=== PATIENT | male | born 1950 | race Caucasian/White ===

== ENCOUNTER 2025-04-20 12:24 | Emergency (ER) | payer OTHER ==
[~2025-04-20] VITALS: Ht 170.2 cm; Wt 81.8 kg
[2025-04-20 12:41] VITALS: TEMP 97.5
[2025-04-20 13:27] LABS: PLATELET COUNT (AUTO) 239 K/uL (150-450); RED BLOOD CELL COUNT(AUTO) 5.86 MIL/uL (4.50-5.90); RED CELL DISTRIBUTION WIDTH 13.9 % (11.5-14.5); WHITE BLOOD COUNT (AUTO) 5.9 K/uL (4.5-11.0)
[2025-04-20 13:37] LABS: CALCIUM, TOTAL 8.5 mg/dL (8.8-10.5); CREATININE 0.84 mg/dL (0.60-1.30); GLOMERULAR FILTR. RATE CALC > 60 mL/min (>60); GLUCOSE,RANDOM 150 mg/dL (70-110); SODIUM SERUM 140 mmol/L (136-145); UREA NITROGEN, BLOOD 10 mg/dL (7-18)
[2025-04-20] MEDS: TERBINAFINE HCL 1% 30 GM CREAM TP ONE (13:37)
[2025-04-20 14:00] VITALS: BP 140/68; PULSE 71; RESP 18; O2SAT 97
[2025-04-20 14:04] LABS: ASPARTATE AMINOTRANSFERASE 27.0 U/L (15-37); TOTAL PROTEIN, SERUM 7.5 g/dL (6.4-8.2)
[2025-04-20 14:32] LABS: APPEARANCE,URINE CLEAR (CLEAR); GLUCOSE, URINE (UA) >=1000 mg/dL (NEGATIVE); LEUKOCYTE ESTERASE ,URINE NEGATIVE (NEGATIVE); NITRATE,URINE NEGATIVE (NEGATIVE); OCCULT BLOOD,URINE NEGATIVE (NEGATIVE); SPECIFIC GRAVITIY, URINE 1.027 (1.003-1.030)
== END 2025-04-20 15:26 | disposition home or self-care (01) ==
LOC: EMS 12:24
DX: B35.1 Tinea unguium (principal); M65.342 Trigger finger, left ring finger; E11.9 Type 2 diabetes mellitus without complications; I10 Essential (primary) hypertension; Z85.038 Personal history of other malignant neoplasm of large intestine; Z98.890 Other specified postprocedural states
CPT/HCPCS: 80048; 80076; 81001; 82962; 83690; 85025; 99283

== ENCOUNTER 2025-06-10 10:00 | Emergency (ER) | payer OTHER, MEDICARE, MEDICAID ==
[~2025-06-10] VITALS: Ht 165.1 cm; Wt 77.0 kg
[2025-06-10 10:10] VITALS: TEMP 97.9
[2025-06-10] MEDS: IOHEXOL 9 MG/ML 500 ML BOTTLE PO ONE (10:50)
[2025-06-10] MEDS ORDERED: IOHEXOL 350 MG/ML 100 ML VIAL ONE (10:53)
[2025-06-10] MEDS ORDERED: SODIUM CHLORIDE 0.9% 100 ML ONE (10:53)
[2025-06-10 10:58] LABS: CALCIUM, TOTAL 9.0 mg/dL (8.8-10.5); CREATININE 0.92 mg/dL (0.60-1.30); GLOMERULAR FILTR. RATE CALC > 60 mL/min (>60); GLUCOSE,RANDOM 134 mg/dL (70-110); SODIUM SERUM 142 mmol/L (136-145); UREA NITROGEN, BLOOD 10 mg/dL (7-18)
[2025-06-10 11:03] LABS: PLATELET COUNT (AUTO) 245 K/uL (150-450); RED BLOOD CELL COUNT(AUTO) 5.66 MIL/uL (4.50-5.90); RED CELL DISTRIBUTION WIDTH 14.4 % (11.5-14.5); WHITE BLOOD COUNT (AUTO) 5.1 K/uL (4.5-11.0)
[2025-06-10 11:07] LABS: TROPONIN I-HIGH SENSITIVITY 28 ng/L (<76)
[2025-06-10 11:40] VITALS: BP 144/76; PULSE 47; RESP 18; O2SAT 99
[2025-06-10] MEDS: SODIUM CHLORIDE 0.9% 1,000 ML IV ONE (11:41)
[2025-06-10 12:14] LABS: APPEARANCE,URINE CLEAR (CLEAR); GLUCOSE, URINE (UA) TRACE mg/dL (NEGATIVE); LEUKOCYTE ESTERASE ,URINE NEGATIVE (NEGATIVE); NITRATE,URINE NEGATIVE (NEGATIVE); OCCULT BLOOD,URINE NEGATIVE (NEGATIVE); SPECIFIC GRAVITIY, URINE 1.019 (1.003-1.030)
[2025-06-10 12:21] LABS: SQUAMOUS EPITHELIAL CELL,UR Few /LPF (None Seen)
[2025-06-10] MEDS ORDERED: MAG30ORA11 PO (13:48)
[2025-06-10] MEDS ORDERED: OMEP-148 PO (13:48)
[2025-06-10] MEDS ORDERED: ACET-66 PO (13:48)
== END 2025-06-10 14:27 | disposition home or self-care (01) ==
LOC: EMS 10:00
DX: R10.84 Generalized abdominal pain (principal); E11.9 Type 2 diabetes mellitus without complications; I10 Essential (primary) hypertension; Z85.038 Personal history of other malignant neoplasm of large intestine; Z98.890 Other specified postprocedural states
CPT/HCPCS: 99285; 74177; 96360; 96361; 71045; 80048; 81001; 83690; 84484; 85025; 36415; 93005; Q9967 ×2; J7030; J7050